=== PATIENT | female | born 1995 | race American Indian/Alaskan Native ===

== ENCOUNTER 2017-12-17 20:22 | Outpatient (CLI) | payer OTHER ==
[2017-12-17] MEDS ORDERED: LACTATED RINGERS 500 ML IV ONE (20:34)
[2017-12-17 20:43] VITALS: BP 122/81
[2017-12-17 21:44] LABS: Bilirubin,Urine NEG (Negative); Blood,Urine NEG (Negative); Color,Urine Yellow (Yellow); Mucus,Urine FEW /HPF; Urobilinogen,Urine < 2.0 mg/dL (<2.0)
[2017-12-17] MEDS ORDERED: BRETHINE SUB-Q PRN (21:58)
== END 2017-12-17 22:33 | disposition home or self-care (01) ==
LOC: TRG 20:22
PROVIDERS: ATTEND Obstetrics & Gynecology
DX: O47.03 False labor before 37 completed weeks of gestation, third trimester (principal); Z3A.35 35 weeks gestation of pregnancy
CPT/HCPCS: 59025; 81001; 96360; J3105; J7120

== ENCOUNTER 2018-11-06 19:56 | Emergency (ER) | payer OTHER ==
--- NOTE | 2018-11-06 21:53 | XRay Report ---
PROCEDURE: XR KNEE 3V RT TECHNIQUE: Right knee radiographs, AP, lateral, and oblique views. HISTORY: right knee pain COMPARISONS: None FINDINGS: Fracture (s) and/or Dislocation(s): None Alignment: Normal Joint space(s): Normal Soft tissues: Normal Bone mineralization: Normal Foreign bodies: None IMPRESSION: Normal Examination This document is electronically signed by Joshua Leung MD., November 06 2018 09:51:15 PM ET
[2018-11-07] MEDS ORDERED: IBUPROFEN PO ONE (00:07)
[2018-11-07 00:16] VITALS: BP 120/87
--- NOTE | 2018-11-07 00:21 | Emergency Department Report ---
ED Lower Extremity HPI - General Chief Complaint: Extremity Injury, Lower Stated Complaint: KNEE SWELLING/NUMBNESS Time Seen by Provider: 11/06/18 22:50 Source: patient Mode of arrival: Ambulatory Limitations: No Limitations - History of Present Illness Initial Comments: pt is a 23 y/o aaf who presents for right low back pain radiating to right lateral thight time today pt denies fall injury or trauma no describes pain as burning tingling there is no weakness no loss or decrease in bowel or bladder function. pt remains ambulatory to baseline per patient. - Related Data Home Medications Medication Instructions Recorded Confirmed Last Taken ARIPiprazole [Abilify] 05/01/13 05/01/13 Unknown Citalopram Hydrobromide [Celexa] 30 mg 05/01/13 05/01/13 Unknown hydrOXYzine PAMOATE (NF) [Vistaril] 50 mg 05/01/13 05/01/13 Unknown Previous Rx's Medication Instructions Recorded Last Taken Type Ibuprofen [Motrin 800 MG tab] 800 mg PO TID PRN #30 tablet 05/01/13 Unknown Rx Ondansetron [Zofran] 4 mg PO Q6HR PRN #10 tablet 05/01/13 Unknown Rx Cyclobenzaprine [Flexeril] 10 mg PO TID PRN #30 tablet 11/07/18 Unknown Rx Naproxen [Naprosyn TAB] 500 mg PO BID PRN #30 tablet 11/07/18 Unknown Rx Allergies Allergy/AdvReac Type Severity Reaction Status Date / Time latex AdvReac Rash Verified 11/06/18 19:59 ED Review of Systems ROS: Stated complaint: KNEE SWELLING/NUMBNESS Other details as noted in HPI ED Past Medical Hx - Past Medical History Previous Medical History?: No Hx Hypertension: No Hx Diabetes: No Hx Deep Vein Thrombosis: No Hx Renal Disease: No Hx Sickle Cell Disease: No (Trait) Hx Seizures: No Hx Psychiatric Treatment: Yes (BIPOLAR/ANXIETY/DEPRESSION) Hx Asthma: No Hx HIV: No - Surgical History Past Surgical History?: Yes Additional Surgical History: tonsil and adenoid removed - Social History Smoking Status: Current Every Day Smoker Substance Use Type: Marijuana - Medications Home Medications: Home Medications Medication Instructions Recorded Confirmed Last Taken Type ARIPiprazole [Abilify] 05/01/13 05/01/13 Unknown History Citalopram Hydrobromide [Celexa] 30 mg 05/01/13 05/01/13 Unknown History Ibuprofen [Motrin 800 MG tab] 800 mg PO TID PRN #30 tablet 05/01/13 Unknown Rx Ondansetron [Zofran] 4 mg PO Q6HR PRN #10 tablet 05/01/13 Unknown Rx hydrOXYzine PAMOATE (NF) [Vistaril] 50 mg 05/01/13 05/01/13 Unknown History Cyclobenzaprine [Flexeril] 10 mg PO TID PRN #30 tablet 11/07/18 Unknown Rx Naproxen [Naprosyn TAB] 500 mg PO BID PRN #30 tablet 11/07/18 Unknown Rx ED Physical Exam - General Limitations: No Limitations ED Course Vital Signs 11/06/18 11/06/18 20:00 20:04 Temperature 98.3 F 98.3 F Pulse Rate 86 84 Respiratory 16 16 Rate Blood Pressure 120/83 120/83 O2 Sat by Pulse 99 99 Oximetry Critical care attestation.: If time is entered above; I have spent that time in minutes in the direct care of this critically ill patient, excluding procedure time. ED Disposition Clinical Impression: Sciatic leg pain Low back strain Qualifiers: Encounter type: initial encounter Qualified Code(s): S39.012A - Strain of muscle, fascia and tendon of lower back, initial encounter Disposition: - TO HOME OR SELFCARE Is pt being admited?: No Does the pt Need Aspirin: No Condition: Stable Instructions: Low Back Strain (ED), Core Strengthening Exercises (GEN) Prescriptions: Cyclobenzaprine [Flexeril] 10 mg PO TID PRN #30 tablet PRN Reason: Muscle Spasm Naproxen [Naprosyn TAB] 500 mg PO BID PRN #30 tablet PRN Reason: pain Referrals: DOLORES CHRIS MD [Primary Care Provider] - 3-5 Days Forms: Work/School Release Form(ED) Time of Disposition: 00:10
--- NOTE | 2018-11-07 00:26 | Emergency Department Report ---
ED Back Pain/Injury HPI - General Chief Complaint: Extremity Injury, Lower Stated Complaint: KNEE SWELLING/NUMBNESS Time Seen by Provider: 11/06/18 22:50 Source: patient Limitations: No Limitations - History of Present Illness Initial Comments: pt is a 23 y/o aaf who presents for right low back pain radiating to right lateral thight time today pt denies fall injury or trauma no describes pain as burning tingling there is no weakness no loss or decrease in bowel or bladder function. pt remains ambulatory to baseline per patient. MD Complaint: back pain Onset/Timin -: days(s) Similar Symptoms Previously: No Place: home Radiation: right leg Severity: moderate Severity scale (0 -10): 4 Quality: burning, tingling Consistency: intermittent Improves With: other (rest and postion) Worsens With: movement Context: turning/twisting Associated Symptoms: denies: numbness, difficulty urinating, incontinence, fever/chills, constipation (is with lack of 45) - Related Data Home Medications Medication Instructions Recorded Confirmed Last Taken ARIPiprazole [Abilify] 05/01/13 05/01/13 Unknown Citalopram Hydrobromide [Celexa] 30 mg 05/01/13 05/01/13 Unknown hydrOXYzine PAMOATE (NF) [Vistaril] 50 mg 05/01/13 05/01/13 Unknown Previous Rx's Medication Instructions Recorded Last Taken Type Ibuprofen [Motrin 800 MG tab] 800 mg PO TID PRN #30 tablet 05/01/13 Unknown Rx Ondansetron [Zofran] 4 mg PO Q6HR PRN #10 tablet 05/01/13 Unknown Rx Cyclobenzaprine [Flexeril] 10 mg PO TID PRN #30 tablet 11/07/18 Unknown Rx Naproxen [Naprosyn TAB] 500 mg PO BID PRN #30 tablet 11/07/18 Unknown Rx Allergies Allergy/AdvReac Type Severity Reaction Status Date / Time latex AdvReac Rash Verified 11/06/18 19:59 ED Review of Systems ROS: Stated complaint: KNEE SWELLING/NUMBNESS Other details as noted in HPI Constitutional: denies: chills, fever Eyes: denies: eye pain, eye discharge, vision change ENT: denies: ear pain, throat pain Respiratory: denies: cough, shortness of breath, wheezing Cardiovascular: denies: chest pain, palpitations Endocrine: no symptoms reported Gastrointestinal: denies: abdominal pain, nausea, diarrhea Genitourinary: denies: urgency, dysuria, discharge Musculoskeletal: back pain, myalgia. denies: joint swelling, arthralgia Skin: denies: rash, lesions Neurological: denies: headache, weakness, paresthesias Psychiatric: denies: anxiety, depression Hematological/Lymphatic: denies: easy bleeding, easy bruising ED Past Medical Hx - Past Medical History Previous Medical History?: No Hx Hypertension: No Hx Diabetes: No Hx Deep Vein Thrombosis: No Hx Renal Disease: No Hx Sickle Cell Disease: No (Trait) Hx Seizures: No Hx Psychiatric Treatment: Yes (BIPOLAR/ANXIETY/DEPRESSION) Hx Asthma: No Hx HIV: No - Surgical History Past Surgical History?: Yes Additional Surgical History: tonsil and adenoid removed - Social History Smoking Status: Current Every Day Smoker Substance Use Type: Marijuana - Medications Home Medications: Home Medications Medication Instructions Recorded Confirmed Last Taken Type ARIPiprazole [Abilify] 05/01/13 05/01/13 Unknown History Citalopram Hydrobromide [Celexa] 30 mg 05/01/13 05/01/13 Unknown History Ibuprofen [Motrin 800 MG tab] 800 mg PO TID PRN #30 tablet 05/01/13 Unknown Rx Ondansetron [Zofran] 4 mg PO Q6HR PRN #10 tablet 05/01/13 Unknown Rx hydrOXYzine PAMOATE (NF) [Vistaril] 50 mg 05/01/13 05/01/13 Unknown History Cyclobenzaprine [Flexeril] 10 mg PO TID PRN #30 tablet 11/07/18 Unknown Rx Naproxen [Naprosyn TAB] 500 mg PO BID PRN #30 tablet 11/07/18 Unknown Rx ED Physical Exam - General Limitations: No Limitations General appearance: alert, in no apparent distress - Head Head exam: Present: atraumatic, normocephalic - Eye Eye exam: Present: normal appearance, PERRL, EOMI Pupils: Present: normal accommodation - ENT ENT exam: Present: mucous membranes moist - Neck Neck exam: Present: normal inspection, full ROM. Absent: tenderness, lymphadenopathy, thyromegaly - Respiratory Respiratory exam: Present: normal lung sounds bilaterally. Absent: respiratory distress, wheezes, stridor (symptoms) - Cardiovascular Cardiovascular Exam: Present: regular rate, normal rhythm, normal heart sounds. Absent: systolic murmur, diastolic murmur, rubs, gallop - GI/Abdominal GI/Abdominal exam: Present: soft, normal bowel sounds. Absent: tenderness, bruit, hernia - Rectal Rectal exam: Present: deferred - Extremities Exam Extremities exam: Present: normal inspection, full ROM, normal capillary refill. Absent: tenderness, pedal edema, joint swelling, calf tenderness - Back Exam Back exam: Present: normal inspection, full ROM, tenderness (right lateral paraspinus muscle pain ), muscle spasm, paraspinal tenderness. Absent: CVA tenderness (R), CVA tenderness (L), vertebral tenderness, rash noted - Expanded Back Exam Expanded Back exam: Present: other (no posterior vertebral point tenderness ). Absent: saddle anesthesia Back exam: Positive Straight Leg Raise: Right, Negative Straight Leg Raising: Left - Neurological Exam Neurological exam: Present: alert, oriented X3, CN II-XII intact, normal gait, reflexes normal. Absent: motor sensory deficit - Expanded Neurological Exam Expanded Patient oriented to: Present: person, place, time Speech: Present: fluid speech Cranial nerves: EOM's Intact: Normal, Gag Reflex: Normal, Tongue Deviation: Normal, Nystagmus: Normal Cerebellar function: Finger to Nose: Normal, Heel to Albarado: Normal, Romberg: Normal Upper motor neuron: Juan Carlos Neglect: Normal, Pronator Drift: Normal, Babinski Sign: Normal, Sensory Extinction: Normal Sensory exam: Lower Extremity Light Touch: Normal, Lower Extremity Pin Prick: Normal, Lower Extremity Temperature: Normal, LE 2 Point Discrimination: Normal Motor strength exam: RUE: 5, LUE: 5, RLE: 5, LLE: 5 DTR: knee (R): 2+, knee (L): 2+, ankle (R): 2+, ankle (L): 2+ Best Eye Response ([place]): (4) open spontaneously Best Motor Response ([place]): (6) obeys commands Best Verbal Response ([place]): (5) oriented Fela Total: 15 - Psychiatric Psychiatric exam: Present: normal affect, normal mood - Skin Skin exam: Present: warm, dry, intact, normal color. Absent: rash ED Course Vital Signs 11/06/18 11/06/18 11/07/18 20:00 20:04 00:15 Temperature 98.3 F 98.3 F Pulse Rate 86 84 79 Respiratory 16 16 16 Rate Blood Pressure 120/83 120/83 Blood Pressure 120/87 [Left] O2 Sat by Pulse 99 99 100 Oximetry ED Medical Decision Making - Medical Decision Making this is a lumbar strain , plan nsaids muscle relaxants , analgesic balm pt will apply moist heat therapy , will follow up with pcp in 2-3 days return to ed if symptoms worsen. Critical care attestation.: If time is entered above; I have spent that time in minutes in the direct care of this critically ill patient, excluding procedure time. ED Disposition Clinical Impression: Sciatic leg pain Low back strain Qualifiers: Encounter type: initial encounter Qualified Code(s): S39.012A - Strain of muscle, fascia and tendon of lower back, initial encounter Disposition: TO HOME OR SELFCARE Is pt being admited?: No Does the pt Need Aspirin: No Condition: Stable Instructions: Low Back Strain (ED), Core Strengthening Exercises (GEN) Prescriptions: Cyclobenzaprine [Flexeril] 10 mg PO TID PRN #30 tablet PRN Reason: Muscle Spasm Naproxen [Naprosyn TAB] 500 mg PO BID PRN #30 tablet PRN Reason: pain Referrals: DOLORES CHRIS MD [Primary Care Provider] - 3-5 Days Forms: Work/School Release Form(ED)
== END 2018-11-07 00:15 | disposition home or self-care (01) ==
LOC: ED 19:56
DX: S39.012A Strain of muscle, fascia and tendon of lower back, initial encounter (principal); M54.31 Sciatica, right side; F17.200 Nicotine dependence, unspecified, uncomplicated; F12.10 Cannabis abuse, uncomplicated; M79.10 Myalgia, unspecified site; Z90.89 Acquired absence of other organs; Z91.040 Latex allergy status; X50.1XXA Overexertion from prolonged static or awkward postures, initial encounter; Y93.89 Activity, other specified; Y92.098 Other place in other non-institutional residence as the place of occurrence of the external cause; Y99.8 Other external cause status
CPT/HCPCS: 99283

== ENCOUNTER 2018-11-08 09:24 | Emergency (ER) | payer OTHER ==
[2018-11-08 09:48] VITALS: BP 110/77
[2018-11-08] MEDS ORDERED: IBUPROFEN PO ONE (10:18)
--- NOTE | 2018-11-08 10:42 | Emergency Department Report ---
ED Extremity Problem HPI - General Chief complaint: Extremity Injury, Lower Stated complaint: (R) KNEE PAIN/SWELLING Time Seen by Provider: 11/08/18 10:12 Source: patient Mode of arrival: Wheelchair Limitations: Physical Limitation - History of Present Illness Initial comments: Patient is a 23-year-old female who is presenting with right knee pain. Patient was here approximately 3 days ago for the same. Patient is diagnosed with sciatica patient states today that she has no back pain. Patient states that her right knee has been swelling and feels very unstable. Patient almost fell today secondary to the pain. Patient states the pain is 8 out of 10 severity is worse with walking and standing and bending. 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 Patient cannot remember any obvious trauma to the right knee. Symptoms have been progressive over the last week. Severity scale (0 -10): 8 - Related Data Home Medications Medication Instructions Recorded Confirmed Last Taken ARIPiprazole [Abilify] 05/01/13 05/01/13 Unknown Citalopram Hydrobromide [Celexa] 30 mg 05/01/13 05/01/13 Unknown hydrOXYzine PAMOATE (NF) [Vistaril] 50 mg 05/01/13 05/01/13 Unknown Previous Rx's Medication Instructions Recorded Last Taken Type Cyclobenzaprine [Flexeril] 10 mg PO TID PRN #30 tablet 11/07/18 Unknown Rx Ketorolac [Toradol] 10 mg PO Q6H PRN #12 tablet 11/08/18 Unknown Rx traMADol [Ultram] 50 mg PO Q6HR PRN #12 tablet 11/08/18 Unknown Rx Allergies Allergy/AdvReac Type Severity Reaction Status Date / Time latex AdvReac Rash Verified 11/08/18 09:25 ED Review of Systems ROS: Stated complaint: (R) KNEE PAIN/SWELLING Other details as noted in HPI Comment: All other systems reviewed and negative ED Past Medical Hx - Past Medical History Hx Hypertension: No Hx Diabetes: No Hx Deep Vein Thrombosis: No Hx Renal Disease: No Hx Sickle Cell Disease: No (Trait) Hx Seizures: No Hx Psychiatric Treatment: Yes (BIPOLAR/ANXIETY/DEPRESSION) Hx Asthma: No Hx HIV: No - Surgical History Additional Surgical History: tonsil and adenoid removed - Social History Smoking Status: Current Every Day Smoker Substance Use Type: Alcohol - Medications Home Medications: Home Medications Medication Instructions Recorded Confirmed Last Taken Type ARIPiprazole [Abilify] 05/01/13 05/01/13 Unknown History Citalopram Hydrobromide [Celexa] 30 mg 05/01/13 05/01/13 Unknown History hydrOXYzine PAMOATE (NF) [Vistaril] 50 mg 05/01/13 05/01/13 Unknown History Cyclobenzaprine [Flexeril] 10 mg PO TID PRN #30 tablet 11/07/18 Unknown Rx Ketorolac [Toradol] 10 mg PO Q6H PRN #12 tablet 11/08/18 Unknown Rx traMADol [Ultram] 50 mg PO Q6HR PRN #12 tablet 11/08/18 Unknown Rx ED Physical Exam - General Limitations: Physical Limitation General appearance: alert, in no apparent distress - Head Head exam: Present: atraumatic, normocephalic - Eye Eye exam: Present: normal appearance - ENT ENT exam: Present: mucous membranes moist - Neck Neck exam: Present: normal inspection - Respiratory Respiratory exam: Present: normal lung sounds bilaterally. Absent: respiratory distress, wheezes, rales, rhonchi - Cardiovascular Cardiovascular Exam: Present: regular rate, normal rhythm. Absent: systolic murmur, diastolic murmur, rubs, gallop - GI/Abdominal GI/Abdominal exam: Present: soft, normal bowel sounds. Absent: distended, tenderness, guarding, rebound - Extremities Exam Extremities exam: Present: normal inspection - Expanded Lower Extremity Exam Right Knee exam: Present: tenderness, swelling. Absent: abrasion, laceration, ecchymosis, deformity - Back Exam Back exam: Present: normal inspection - Neurological Exam Neurological exam: Present: alert, oriented X3 - Psychiatric Psychiatric exam: Present: normal affect, normal mood - Skin Skin exam: Present: warm, dry, intact, normal color. Absent: rash ED Course Vital Signs 11/08/18 09:46 Temperature 98.1 F Pulse Rate 89 Respiratory 16 Rate Blood Pressure 110/77 O2 Sat by Pulse 100 Oximetry ED Medical Decision Making - Medical Decision Making Patient likely with some internal derangement of the right knees. Patient does have considerable amount of pain with range of motion. There is a obvious [id number] effusion. Patient placed in knee immobilizer and given crutches and follow-up with orthopedics. Patient can bend greater than 90. There is no obvious trauma. X-rays are not warranted at this time. Critical care attestation.: If time is entered above; I have spent that time in minutes in the direct care of this critically ill patient, excluding procedure time. ED Disposition Clinical Impression: Internal derangement of knee Qualifiers: Laterality: right Qualified Code(s): M23.91 - Unspecified internal derangement of right knee Disposition: DC- TO HOME OR SELFCARE Is pt being admited?: No Does the pt Need Aspirin: No Condition: Stable Instructions: Knee Pain (ED), Knee Effusion (ED) Referrals: NICHOLAS SAWYER MD [Staff Physician] - 3-5 Days Time of Disposition: 10:42
== END 2018-11-08 10:55 | disposition home or self-care (01) ==
LOC: ED 09:24
DX: M23.91 Unspecified internal derangement of right knee (principal); F17.200 Nicotine dependence, unspecified, uncomplicated

== ENCOUNTER 2018-11-14 12:52 | Emergency (ER) | payer SELFPAY ==
[2018-11-14 13:07] VITALS: BP 128/87
--- NOTE | 2018-11-14 13:12 | Emergency Department Report ---
Chief Complaint: Extremity Problem,Nontraumatic Stated Complaint: RT KNEE PAIN Time Seen by Provider: 11/14/18 13:03 - HPI History of Present Illness: This is a 23-year-old female nontoxic well in appearance with no signs of distress presents to the ED for work excuse note. Patient stated that she has a injury to right knee and was seen here 6 days ago and was placed on knee immboilzer and crutches., Stated can not go back to work due to pain. Has orthopedic follow-up on the and needs work excuse till then. Denies any new injuries or complaints. Denies any fever, chills, headache, nausea, vomiting, chest pain or SOB. Denies any other complaints. - Exam Vital Signs: Vital Signs 11/14/18 13:03 Temperature 97.9 F Pulse Rate 86 Respiratory 20 Rate Blood Pressure 128/87 O2 Sat by Pulse 100 Oximetry Physical Exam: Right knee exam: Normal ROM with pain. No cellulitis. No swelling. Tenderness to touch. Normal neurovacular exam. MSE screening note: Focused history and physical exam performed. Due to findings the following was ordered: ED Disposition for MSE Clinical Impression: Encounter to obtain excuse from work Disposition: DC-01 TO HOME OR SELFCARE Is pt being admited?: No Does the pt Need Aspirin: No Condition: Stable Additional Instructions: Follow-up with a orthopedic doctor in 3-5 days or if symptoms worsen and continue return to the emergency department as soon as possible. Referrals: PRIMARY CAREMD [Referring] - 3-5 Days NICHOLAS SAWYER MD [Staff Physician] - 3-5 Days [facility] [Outside] - 3-5 Days [facility] [Outside] - 3-5 Days Forms: Work/School Release Form(ED)
== END 2018-11-14 13:23 | disposition home or self-care (01) ==
LOC: ED 12:52
DX: S89.91XA Unspecified injury of right lower leg, initial encounter (principal); Z91.040 Latex allergy status; X58.XXXA Exposure to other specified factors, initial encounter; Y93.89 Activity, other specified; Y92.89 Other specified places as the place of occurrence of the external cause; Y99.8 Other external cause status
CPT/HCPCS: 99283

== ENCOUNTER 2019-04-14 16:17 | Emergency (ER) | payer SELFPAY ==
--- NOTE | 2019-04-14 18:04 | Event Note ---
ED Screening Note Date of service: 04/14/19 Time: 18:03 ED Screening Note: Pt complains of right foot pain x yesterday after tripping over a toy 4 months This initial assessment/diagnostic orders/clinical plan/treatment(s) is/are subject to change based on patients health status, clinical progression and re- assessment by fellow clinical providers in the ED. Further treatment and workup at subsequent clinical providers discretion. Patient/guardian urged not to elope from the ED as their condition may be serious if not clinically assessed and managed. Initial orders include: XR
--- NOTE | 2019-04-14 19:01 | XRay Report ---
RIGHT FOOT 3 VIEWS INDICATION / CLINICAL INFORMATION: lateral pain after injury. COMPARISON: None available. FINDINGS: No fracture, dislocation or soft tissue swelling is seen within the right foot. Joint spaces are well preserved. Signer Name: Angelo Harrison MD Signed: 04/14/2019 6:56 PM Workstation Name: [id number]
[2019-04-14] MEDS ORDERED: IBUPROFEN 800 MG TAB PO ONE (21:55)
--- NOTE | 2019-04-14 22:45 | Emergency Department Report ---
ED Extremity Problem HPI - General Chief complaint: Extremity Injury, Lower Stated complaint: R FOOT INJURY/PAIN Time Seen by Provider: 04/14/19 18:02 Source: patient Mode of arrival: Ambulatory Limitations: No Limitations - History of Present Illness Initial comments: Patient is a 23-year-old asthmatic female who was walking stepping off a curb she actually stepped on a toy car. Patient rolled the right foot and ankle. She is complaining of lateral right foot pain. States pain is 10 out of 10 when bearing weight. Patient has no other injuries at this time. - Related Data Home Medications Medication Instructions Recorded Confirmed Last Taken ARIPiprazole [Abilify] 05/01/13 05/01/13 Unknown Citalopram Hydrobromide [Celexa] 30 mg 05/01/13 05/01/13 Unknown hydrOXYzine PAMOATE (NF) [Vistaril] 50 mg 05/01/13 05/01/13 Unknown Previous Rx's Medication Instructions Recorded Last Taken Type Cyclobenzaprine [Flexeril] 10 mg PO TID PRN #30 tablet 11/07/18 Unknown Rx Ketorolac [Toradol] 10 mg PO Q6H PRN #12 tablet 11/08/18 Unknown Rx traMADol [Ultram] 50 mg PO Q6HR PRN #12 tablet 11/08/18 Unknown Rx Ibuprofen [Motrin 800 MG tab] 800 mg PO Q8HR PRN #10 tablet 04/14/19 Unknown Rx traMADol [Ultram] 50 mg PO Q6HR PRN #10 tablet 04/14/19 Unknown Rx Allergies Allergy/AdvReac Type Severity Reaction Status Date / Time latex AdvReac Rash Verified 04/14/19 16:31 ED Review of Systems ROS: Stated complaint: R FOOT INJURY/PAIN Other details as noted in HPI Comment: All other systems reviewed and negative ED Past Medical Hx - Past Medical History Previous Medical History?: Yes Hx Hypertension: No Hx Diabetes: No Hx Deep Vein Thrombosis: No Hx Renal Disease: No Hx Sickle Cell Disease: (Trait) Hx Seizures: No Hx Psychiatric Treatment: Yes (BIPOLAR/ANXIETY/DEPRESSION) Hx Asthma: No Hx HIV: No - Surgical History Additional Surgical History: tonsil and adenoid removed - Social History Smoking Status: Never Smoker Substance Use Type: None - Medications Home Medications: Home Medications Medication Instructions Recorded Confirmed Last Taken Type ARIPiprazole [Abilify] 05/01/13 05/01/13 Unknown History Citalopram Hydrobromide [Celexa] 30 mg 05/01/13 05/01/13 Unknown History hydrOXYzine PAMOATE (NF) [Vistaril] 50 mg 05/01/13 05/01/13 Unknown History Cyclobenzaprine [Flexeril] 10 mg PO TID PRN #30 tablet 11/07/18 Unknown Rx Ketorolac [Toradol] 10 mg PO Q6H PRN #12 tablet 11/08/18 Unknown Rx traMADol [Ultram] 50 mg PO Q6HR PRN #12 tablet 11/08/18 Unknown Rx Ibuprofen [Motrin 800 MG tab] 800 mg PO Q8HR PRN #10 tablet 04/14/19 Unknown Rx traMADol [Ultram] 50 mg PO Q6HR PRN #10 tablet 04/14/19 Unknown Rx ED Physical Exam - General Limitations: No Limitations General appearance: alert, in no apparent distress - Head Head exam: Present: atraumatic, normocephalic - Eye Eye exam: Present: normal appearance - ENT ENT exam: Present: mucous membranes moist - Neck Neck exam: Present: normal inspection - Respiratory Respiratory exam: Absent: respiratory distress - Cardiovascular Cardiovascular Exam: Present: regular rate, normal rhythm - GI/Abdominal GI/Abdominal exam: Present: soft - Extremities Exam Extremities exam: Present: normal inspection - Expanded Lower Extremity Exam Right Foot/Toe exam: Present: full ROM, tenderness. Absent: swelling, abrasion, ecchymosis Neuro vascular tendon exam: Present: no vascular compromise - Back Exam Back exam: Present: normal inspection - Neurological Exam Neurological exam: Present: alert, oriented X3 - Psychiatric Psychiatric exam: Present: normal affect, normal mood - Skin Skin exam: Present: warm, dry, intact, normal color. Absent: rash ED Course Vital Signs 04/14/19 16:22 Temperature 98.2 F Pulse Rate 99 H Respiratory 19 Rate Blood Pressure 110/69 O2 Sat by Pulse 99 Oximetry ED Medical Decision Making - Radiology Data RIGHT FOOT 3 VIEWS INDICATION / CLINICAL INFORMATION: lateral pain after injury. COMPARISON: None available. FINDINGS: No fracture, dislocation or soft tissue swelling is seen within the right foot. Joint spaces are well preserved. Signer Name: Angelo Harrison MD - Medical Decision Making Physical injury to the right foot. No fractures were seen. Patient placed in orthostatic U given crutches and will follow-up with podiatry. Critical care attestation.: If time is entered above; I have spent that time in minutes in the direct care of this critically ill patient, excluding procedure time. ED Disposition Clinical Impression: Foot sprain Qualifiers: Encounter type: initial encounter Laterality: right Qualified Code(s): S93.601A - Unspecified sprain of right foot, initial encounter Disposition: TO HOME OR SELFCARE Is pt being admited?: No Does the pt Need Aspirin: No Condition: Stable Instructions: Foot Sprain (ED) Referrals: IJEOMA MERCADO DPM [Staff Physician] - 3-5 Days Time of Disposition: 22:44
[2019-04-14 23:12] VITALS: BP 118/65
== END 2019-04-14 23:11 | disposition home or self-care (01) ==
LOC: ED 16:17
DX: S93.601A Unspecified sprain of right foot, initial encounter (principal); F31.9 Bipolar disorder, unspecified; F41.9 Anxiety disorder, unspecified; Z79.899 Other long term (current) drug therapy; Z98.890 Other specified postprocedural states; Z91.040 Latex allergy status; W22.8XXA Striking against or struck by other objects, initial encounter; Y93.89 Activity, other specified; Y92.89 Other specified places as the place of occurrence of the external cause; Y99.8 Other external cause status

== ENCOUNTER 2019-04-19 14:16 | Emergency (ER) | payer SELFPAY ==
[2019-04-19 16:10] VITALS: BP 115/60
== END 2019-04-19 18:42 | disposition left against medical advice (07) ==
LOC: ED 14:16
DX: M79.604 Pain in right leg (principal); Z53.21 Procedure and treatment not carried out due to patient leaving prior to being seen by health care provider

== ENCOUNTER 2019-09-15 00:06 | Outpatient (CLI) | payer SELFPAY ==
[2019-09-15 00:28] VITALS: BP 114/72
== END 2019-09-15 00:58 | disposition home or self-care (01) ==
LOC: TRG 00:06
PROVIDERS: ATTEND Obstetrics & Gynecology
DX: O47.9 False labor, unspecified (principal); Z3A.00 Weeks of gestation of pregnancy not specified
CPT/HCPCS: 59025

== ENCOUNTER 2019-12-10 17:02 | Emergency (ER) | payer MEDICAID ==
[2019-12-10 18:43] VITALS: BP 122/73
== END 2019-12-11 07:15 | disposition left against medical advice (07) ==
LOC: ED 17:02
DX: K08.89 Other specified disorders of teeth and supporting structures (principal); R51 Headache; Z53.21 Procedure and treatment not carried out due to patient leaving prior to being seen by health care provider

== ENCOUNTER 2020-01-18 15:04 | Emergency (ER) | payer MEDICAID ==
[2020-01-18 15:10] VITALS: BP 122/91
--- NOTE | 2020-01-18 16:07 | Emergency Department Report ---
ED Extremity Problem HPI - General Chief complaint: Extremity Injury, Lower Stated complaint: RT FOOT INJURY/PINKY PAIN Time Seen by Provider: 01/18/20 15:44 Source: patient Mode of arrival: Ambulatory Limitations: No Limitations - History of Present Illness Initial comments: Is a very pleasant 24-year-old female presents the emergency department chief complaint of pain to her right foot after she stepped on some glass approximately 1 month ago. She reports pain is aggravated by movement and weightbearing. Denies any other injuries. She denies any known past medical history, current medication use or known allergies medications. Pain is a 9 out of 10. She reports she tried to drain it at home and some pus came out of the wound. - Related Data Home Medications Medication Instructions Recorded Confirmed Last Taken ARIPiprazole [Abilify] 05/01/13 05/01/13 Unknown Citalopram Hydrobromide [Celexa] 30 mg 05/01/13 05/01/13 Unknown hydrOXYzine PAMOATE (NF) [Vistaril] 50 mg 05/01/13 05/01/13 Unknown Previous Rx's Medication Instructions Recorded Last Taken Type Cyclobenzaprine [Flexeril] 10 mg PO TID PRN #30 tablet 11/07/18 Unknown Rx Ketorolac [Toradol] 10 mg PO Q6H PRN #12 tablet 11/08/18 Unknown Rx traMADoL [Ultram] 50 mg PO Q6HR PRN #12 tablet 11/08/18 Unknown Rx Ibuprofen [Motrin 800 MG tab] 800 mg PO Q8HR PRN #10 tablet 04/14/19 Unknown Rx traMADoL [Ultram] 50 mg PO Q6HR PRN #10 tablet 04/14/19 Unknown Rx Ibuprofen [Motrin 800 MG tab] 800 mg PO Q8HR PRN #30 tablet 01/18/20 Unknown Rx Sulfamethoxazole/Trimethoprim 1 each PO BID #20 tablet 01/18/20 Unknown Rx [Bactrim DS TAB] cephALEXin [Keflex] 500 mg PO Q6HR #40 capsule 01/18/20 Unknown Rx Allergies Allergy/AdvReac Type Severity Reaction Status Date / Time latex AdvReac Rash Verified 12/10/19 18:34 ED Review of Systems ROS: Stated complaint: RT FOOT INJURY/PINKY PAIN Other details as noted in HPI Comment: All other systems reviewed and negative Constitutional: denies: chills, fever Eyes: denies: eye pain, eye discharge, vision change ENT: denies: ear pain, throat pain Respiratory: denies: cough, shortness of breath, wheezing Cardiovascular: denies: chest pain, palpitations Endocrine: no symptoms reported Gastrointestinal: denies: abdominal pain, nausea, diarrhea Genitourinary: denies: urgency, dysuria, discharge Musculoskeletal: as per HPI, other. denies: back pain, joint swelling, arthralgia Skin: denies: rash, lesions Neurological: denies: headache, weakness, paresthesias Psychiatric: denies: anxiety, depression Hematological/Lymphatic: denies: easy bleeding, easy bruising ED Past Medical Hx - Past Medical History Previous Medical History?: Yes Hx Hypertension: No Hx Diabetes: No Hx Deep Vein Thrombosis: No Hx Renal Disease: No Hx Sickle Cell Disease: No Hx Seizures: No Hx Psychiatric Treatment: Yes (BIPOLAR/ANXIETY/DEPRESSION) Hx Asthma: No Hx HIV: No - Surgical History Past Surgical History?: Yes Additional Surgical History: tonsil and adenoid removed - Social History Smoking Status: Never Smoker Substance Use Type: Alcohol - Medications Home Medications: Home Medications Medication Instructions Recorded Confirmed Last Taken Type ARIPiprazole [Abilify] 05/01/13 05/01/13 Unknown History Citalopram Hydrobromide [Celexa] 30 mg 05/01/13 05/01/13 Unknown History hydrOXYzine PAMOATE (NF) [Vistaril] 50 mg 05/01/13 05/01/13 Unknown History Cyclobenzaprine [Flexeril] 10 mg PO TID PRN #30 tablet 11/07/18 Unknown Rx Ketorolac [Toradol] 10 mg PO Q6H PRN #12 tablet 11/08/18 Unknown Rx traMADoL [Ultram] 50 mg PO Q6HR PRN #12 tablet 11/08/18 Unknown Rx Ibuprofen [Motrin 800 MG tab] 800 mg PO Q8HR PRN #10 tablet 04/14/19 Unknown Rx traMADoL [Ultram] 50 mg PO Q6HR PRN #10 tablet 04/14/19 Unknown Rx Ibuprofen [Motrin 800 MG tab] 800 mg PO Q8HR PRN #30 tablet 01/18/20 Unknown Rx Sulfamethoxazole/Trimethoprim 1 each PO BID #20 tablet 08/15/20 Unknown Rx [Bactrim DS TAB] cephALEXin [Keflex] 500 mg PO Q6HR #40 capsule 01/18/20 Unknown Rx ED Physical Exam - General Limitations: No Limitations General appearance: alert, in no apparent distress - Head Head exam: Present: atraumatic, normocephalic - Eye Eye exam: Present: normal appearance, PERRL, EOMI Pupils: Present: normal accommodation - ENT ENT exam: Present: normal exam, normal orophraynx, mucous membranes moist - Neck Neck exam: Present: normal inspection, full ROM. Absent: tenderness, meningismus - Respiratory Respiratory exam: Present: normal lung sounds bilaterally. Absent: respiratory distress, wheezes, rales, rhonchi, stridor, chest wall tenderness - Cardiovascular Cardiovascular Exam: Present: regular rate, normal rhythm, normal heart sounds. Absent: systolic murmur, diastolic murmur, rubs, gallop - GI/Abdominal GI/Abdominal exam: Present: soft, normal bowel sounds. Absent: distended, tenderness, guarding, rebound, rigid - Extremities Exam Extremities exam: Present: normal inspection, full ROM, tenderness (abscess with fluctuance at the base of the right 5th toe on plantar aspect.), normal capillary refill - Back Exam Back exam: Present: normal inspection, full ROM. Absent: tenderness, CVA tenderness (R), CVA tenderness (L), muscle spasm, paraspinal tenderness, vertebral tenderness, rash noted - Neurological Exam Neurological exam: Present: alert, oriented X3, normal gait - Psychiatric Psychiatric exam: Present: normal affect, normal mood - Skin Skin exam: Present: warm, dry, intact, normal color. Absent: rash ED Course Vital Signs 01/18/20 15:08 Temperature 98.1 F Pulse Rate 59 L Respiratory 20 Rate Blood Pressure 122/91 O2 Sat by Pulse 100 Oximetry - I & D Right Plantar Foot Type of Procedure: Complex Site: Base of the right fifth digit on the plantar aspect of the right foot Blade Size: 11 I & D Procedure: betadine prep Progress: I first used 1% lidocaine without epinephrine and injected around the area of fluctuance. I then used an 11 blade to make small incision approximately half centimeter in length and a large amount of purulent drainage approximately 5 to 10 cc was expressed. I then using forceps was able to remove 3 shards of glass with the largest measuring approximately half centimeter. The wound was then irrigated and a sterile dressing was applied. Less than 5 mL of blood loss. ED Medical Decision Making - Medical Decision Making Patient had a small abscess at the base the foot with some glass in it. The abscess was drained and thoroughly cleaned and the foreign body was removed. Recommended antibiotics, anti-inflammatories and follow-up with podiatry for reevaluation of her symptoms.improved. Return to emerge department any changing or worsening symptoms. She verbalized understanding the diagnosis, treatment plan and follow-up instructions and all of her questions were answered. - Differential Diagnosis Abscess, foreign body, laceration, abrasion Critical care attestation.: If time is entered above; I have spent that time in minutes in the direct care of this critically ill patient, excluding procedure time. ED Disposition Clinical Impression: Abscess of left foot, Foreign body (FB) in soft tissue Disposition: - TO HOME OR SELFCARE Is pt being admited?: No Condition: Stable Instructions: Abscess Incision and Drainage (ED) Additional Instructions: I recommend warm soapy water soaks 5 minutes every hour in addition to taking antibiotics and anti-inflammatories. Prescriptions: Sulfamethoxazole/Trimethoprim [Bactrim DS TAB] 1 each PO BID #20 tablet cephALEXin [Keflex] 500 mg PO Q6HR #40 capsule Ibuprofen [Motrin 800 MG tab] 800 mg PO Q8HR PRN #30 tablet PRN Reason: Pain , Severe (7-10) Referrals: PRIMARY CARE, [Primary Care Provider] - 3-5 Days IJEOMA MERCADO DPM [Staff Physician] - 3-5 Days Time of Disposition: 16:09
== END 2020-01-18 16:24 | disposition home or self-care (01) ==
LOC: ED 15:04
DX: L02.611 Cutaneous abscess of right foot (principal); M79.5 Residual foreign body in soft tissue; F31.9 Bipolar disorder, unspecified; Z98.890 Other specified postprocedural states; Z79.1 Long term (current) use of non-steroidal anti-inflammatories (NSAID); Z79.899 Other long term (current) drug therapy; Z91.040 Latex allergy status
CPT/HCPCS: 99282

== ENCOUNTER 2020-09-11 10:26 | Emergency (ER) | payer MEDICAID ==
[2020-09-11 10:35] VITALS: BP 129/95
--- NOTE | 2020-09-11 11:10 | Emergency Department Report ---
ED General Adult HPI - General Chief complaint: Extremity Injury, Upper Stated complaint: LT ELBOW Time Seen by Provider: 09/11/20 11:06 Source: patient Mode of arrival: Ambulatory Limitations: No Limitations - History of Present Illness Initial comments: 24-year-old [id number] female patient presents to the emergency department with complaints of traumatic left upper extremity pain starting yesterday. Patient states she accidentally fell onto her left side. There was no resulting head injury or loss of consciousness. Patient is complaining primarily of pain to her left shoulder, left elbow, and left hand. Denies headache, neck pain, paresthesias, numbness, skin color changes. Denies other complaints at this time. - Related Data Home Medications Medication Instructions Recorded Confirmed Last Taken ARIPiprazole [Abilify] 05/01/13 05/01/13 Unknown Citalopram Hydrobromide [Celexa] 30 mg 05/01/13 05/01/13 Unknown hydrOXYzine PAMOATE (NF) [Vistaril] 50 mg 05/01/13 05/01/13 Unknown Previous Rx's Medication Instructions Recorded Last Taken Type Cyclobenzaprine [Flexeril] 10 mg PO TID PRN #30 tablet 11/07/18 Unknown Rx Ketorolac [Toradol] 10 mg PO Q6H PRN #12 tablet 11/08/18 Unknown Rx traMADoL [Ultram] 50 mg PO Q6HR PRN #12 tablet 11/08/18 Unknown Rx Ibuprofen [Motrin 800 MG tab] 800 mg PO Q8HR PRN #10 tablet 04/14/19 Unknown Rx traMADoL [Ultram] 50 mg PO Q6HR PRN #10 tablet 04/14/19 Unknown Rx Ibuprofen [Motrin 800 MG tab] 800 mg PO Q8HR PRN #30 tablet 01/18/20 Unknown Rx Sulfamethoxazole/Trimethoprim 1 each PO BID #20 tablet 01/18/20 Unknown Rx [Bactrim DS TAB] cephALEXin [Keflex] 500 mg PO Q6HR #40 capsule 01/18/20 Unknown Rx Allergies Allergy/AdvReac Type Severity Reaction Status Date / Time latex AdvReac Rash Verified 12/10/19 18:34 ED Review of Systems ROS: Stated complaint: LT ELBOW Other details as noted in HPI Other: CARDIOVASCULAR: Negative for chest pain. PULMONARY: Negative for dyspnea. GASTROINTESTINAL: Negative for abdominal pain. MUSCULOSKELETAL: Positive for left shoulder, left arm, left elbow, and left hand pain. NEUROLOGICAL: Negative for headache. INTEGUMENTARY: Negative for ecchymosis. ED Past Medical Hx - Past Medical History Hx Hypertension: No Hx Diabetes: No Hx Deep Vein Thrombosis: No Hx Renal Disease: No Hx Sickle Cell Disease: No Hx Seizures: No Hx Psychiatric Treatment: Yes (BIPOLAR/ANXIETY/DEPRESSION) Hx Asthma: No Hx HIV: No - Surgical History Additional Surgical History: tonsil and adenoid removed - Social History Smoking Status: Never Smoker Substance Use Type: Alcohol - Medications Home Medications: Home Medications Medication Instructions Recorded Confirmed Last Taken Type ARIPiprazole [Abilify] 05/01/13 05/01/13 Unknown History Citalopram Hydrobromide [Celexa] 30 mg 05/01/13 05/01/13 Unknown History hydrOXYzine PAMOATE (NF) [Vistaril] 50 mg 05/01/13 05/01/13 Unknown History Cyclobenzaprine [Flexeril] 10 mg PO TID PRN #30 tablet 11/07/18 Unknown Rx Ketorolac [Toradol] 10 mg PO Q6H PRN #12 tablet 11/08/18 Unknown Rx traMADoL [Ultram] 50 mg PO Q6HR PRN #12 tablet 11/08/18 Unknown Rx Ibuprofen [Motrin 800 MG tab] 800 mg PO Q8HR PRN #10 tablet 04/14/19 Unknown Rx traMADoL [Ultram] 50 mg PO Q6HR PRN #10 tablet 04/14/19 Unknown Rx Ibuprofen [Motrin 800 MG tab] 800 mg PO Q8HR PRN #30 tablet 01/18/20 Unknown Rx Sulfamethoxazole/Trimethoprim 1 each PO BID #20 tablet 01/18/20 Unknown Rx [Bactrim DS TAB] cephALEXin [Keflex] 500 mg PO Q6HR #40 capsule 01/18/20 Unknown Rx ED Physical Exam - General Limitations: No Limitations - Other Other exam information: General: Awake, appropriately interactive, no acute distress. Neck: Supple. Full range of motion intact. Cardiovascular: Normal peripheral perfusion. Pulmonary: No respiratory distress. Patient is speaking normally without use of accessory muscles. Skin: No apparent rashes or lesions. Neurological: No facial asymmetry. Speech is clear. Follows commands. Patient is alert and oriented. Musculoskeletal: Poorly localized tenderness throughout the left shoulder, left elbow, left forearm, and left hand. There is mild soft tissue swelling noted to the left elbow. Range of motion painful but intact throughout. Distal neuro vascular and motor/sensory function intact. Psych: Cooperative. Appropriate mood and affect. ED Course Vital Signs 09/11/20 10:32 Temperature 98.1 F Pulse Rate 98 H Respiratory 16 Rate Blood Pressure 129/95 O2 Sat by Pulse 95 Oximetry ED Medical Decision Making - Medical Decision Making Differential diagnosis including but not limited to: sprain, strain, fracture, contusion, dislocation On reevaluation, patient remains stable. Repeat neurovascular exam remains intact. X-rays without acute process. History and exam findings consistent with soft tissue injury. Patient will be placed in an elbow sling for comfort and advised to follow-up with local primary care provider. Patient expressed understanding and is agreeable to plan of care. RICE precautions discussed. Strict return precautions provided. Repeat exam is unremarkable and benign. History, exam, diagnostic testing, and current condition do not suggest worrisome pathology to warrant further testing, continued ED treatment, admission, or surgical evaluation at this point. Given the low probability of a significant medical illness, it would be more likely to result in harm than benefit to perform further testing at this stage. Discussed findings, presumptive diagnosis, need for follow-up and specific signs/symptoms that should prompt immediate return to the emergency department. Instructions were explained in detail to the patient in addition to giving written discharge information. Patient expressed understanding and was given the opportunity to ask questions, all of which were satisfactorily answered prior to discharge home. Critical care attestation.: If time is entered above; I have spent that time in minutes in the direct care of this critically ill patient, excluding procedure time. ED Disposition Clinical Impression: Pain of left upper extremity Left elbow contusion Qualifiers: Encounter type: initial encounter Qualified Code(s): S50.02XA - Contusion of left elbow, initial encounter Disposition: TO HOME OR SELFCARE Is pt being admited?: No Does the pt Need Aspirin: No Condition: Stable Instructions: Contusion, [id number] Additional Instructions: Take Tylenol every 4 hours as needed for pain. Take Motrin every 6 hours as needed for pain. Apply ice to affected area as needed for pain. Wear sling as directed. Gradually advance physical activity slowly as tolerated. Follow-up with Dr. Aguilera, primary care provider, within 1 week. Call tomorrow to schedule an appointment. Return to the emergency department immediately for new or worsening symptoms. Referrals: ARIANNA AGUILERA MD [Staff Physician] - 3-5 Days Time of Disposition: 13:01
--- NOTE | 2020-09-11 12:54 | XRay Report ---
HISTORY:trauma COMPARISON: None. TECHNIQUE: AP lateral and obliques views were obtained FINDINGS: Bones: No fracture or dislocation. Joint spaces: Maintained. Soft tissues: No significant abnormality. Additional findings: None. IMPRESSION: 1. No significant abnormality. Signer Name: Andrew Ramirez MD Signed: 09/11/2020 12:50 PM [facility]station [facility]: [id number]
--- NOTE | 2020-09-11 12:55 | XRay Report ---
LEFT FOREARM CLINICAL DATA: trauma TECHNICAL DATA: Two views were obtained, AP and lateral FINDINGS: There is no acute fracture or dislocation. The visualized joint spaces are normal. IMPRESSION: No acute radiographic abnormality. Signer Name: Andrew Ramirez MD Signed: 09/11/2020 12:50 PM Workstation Name: [id number]
--- NOTE | 2020-09-11 12:55 | XRay Report ---
EXAMINATION: Left shoulder radiograph, 2 views, 09/11/2020 CLINICAL INFORMATION: Left shoulder pain. Trauma. COMPARISON: None. FINDINGS: There is no evidence of acute fracture or glenohumeral dislocation. No focal soft tissue sw elling is visualized. IMPRESSION: 1. No evidence of acute bony abnormality of the left shoulder. Signer Name: Ayesha Newby MD Signed: 09/11/2020 12:51 PM Workstation Name: [id number]
--- NOTE | 2020-09-11 12:55 | XRay Report ---
CLINICAL DATA: trauma TECHNICAL DATA: 3 views of the elbow were obtained, AP, lateral, obliques FINDINGS: There is no acute fracture or dislocation. There is visualization of the anterior humeral fat pad. Th is is no consistent with a joint effusion. The radial head articulates normally with the capitellum a nd the ulna articulates normally with the trochlea. No obvious fractures identified. IMPRESSION: 1. There is no convincing acute fracture detected at this time. Signer Name: Andrew Ramirez MD Signed: 09/11/2020 12:51 PM Workstation Name: [id number]
--- NOTE | 2020-09-11 12:55 | XRay Report ---
HISTORY:trauma COMPARISON: None. TECHNIQUE: AP lateral and obliques views were obtained FINDINGS: Bones: No fracture or dislocation. Joint spaces: Maintained. Soft tissues: No significant abnormality. Additional findings: None. IMPRESSION: 1. No significant abnormality. Signer Name: Andrew Ramirez MD Signed: 09/11/2020 12:51 PM Workstation Name: [id number]
== END 2020-09-11 13:37 | disposition home or self-care (01) ==
LOC: ED 10:26
DX: S50.02XA Contusion of left elbow, initial encounter (principal); F31.9 Bipolar disorder, unspecified; F41.9 Anxiety disorder, unspecified; Z98.890 Other specified postprocedural states; Z79.1 Long term (current) use of non-steroidal anti-inflammatories (NSAID); Z79.899 Other long term (current) drug therapy; Z91.040 Latex allergy status; W19.XXXA Unspecified fall, initial encounter; Y93.89 Activity, other specified; Y92.89 Other specified places as the place of occurrence of the external cause; Y99.8 Other external cause status
CPT/HCPCS: 99283

== ENCOUNTER 2021-04-14 16:10 | Outpatient (CLI) | payer MEDICAID ==
[2021-04-14 17:27] LABS: Bacteria,Urine 1+ /HPF (Negative); Bilirubin,Urine NEG (Negative); Blood,Urine NEG (Negative); Color,Urine Amber (Yellow); Mucus,Urine 3+ /HPF
[2021-04-14] MEDS ORDERED: LACTATED RINGERS 1,000 ML IV ONE (17:41)
[2021-04-14] MEDS ORDERED: NIFEdipine*For Tocolysis only* 10 MG CAPSULE PO ONE (18:45)
[2021-04-14 18:50] VITALS: BP 119/72
[2021-04-14] MEDS ORDERED: cefTRIAXone/NS 2 GM/100 ML 2 GM/100 ML BAG IV SCH (20:00)
== END 2021-04-14 19:57 | disposition home or self-care (01) ==
LOC: APU 16:10 → TRG 16:10
PROVIDERS: ATTEND Obstetrics & Gynecology
DX: Z34.93 Encounter for supervision of normal pregnancy, unspecified, third trimester (principal); Z3A.29 29 weeks gestation of pregnancy
CPT/HCPCS: 81001; J0696; J7120